=== PATIENT | female | born 1935 | race Caucasian/White ===

== ENCOUNTER 2017-10-23 05:13 | Emergency (ER) | payer MEDICARE, OTHER ==
[2017-10-23 05:41] VITALS: BP 121/82
--- NOTE | 2017-10-23 05:57 | EDM.PDOC ---
ED HPI GENERAL MEDICAL PROBLEM - General Chief Complaint: Syncope Stated Complaint: MEDICAL VIA [facility] Time Seen by Provider: 10/23/17 05:35 Source of Information: Reports: Patient History Limitations: Reports: Other (old records not available) - History of Present Illness INITIAL COMMENTS - FREE TEXT/NARRATIVE: 82 yo female from [facility] gets all her medical care in [place] and has had a lot of manipulation of her BP meds in recent mos. Tonight was up to go to the bathroom and after several warnings of light-headedness eventually fell. She suffered minimal injury with the fall, but EMS was called and transported after a 500 ml bolus of IV fluids. She is feeling better now. Last BUN was 44, Cr 1.16 Onset: Today Onset Date: 10/23/17 Duration: Minutes:, Improving Location: Reports: Generalized Quality: Reports: Other (no pain) Severity: Mild Improves with: Reports: Other (fluids) Worsens with: Reports: Other (? 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 - Related Data Allergies Allergy/AdvReac Type Severity Reaction Status Date / Time meclizine Allergy Rash Verified 10/23/17 05:15 Sulfa (Sulfonamide Allergy Rash Verified 10/23/17 05:15 Antibiotics) Home Meds: Home Meds ALPRAZolam [Xanax] 0.25 mg PO TID PRN 10/04/15 [History] Aspirin [Ecotrin] 81 mg PO BEDTIME 10/04/15 [History] Atenolol 50 mg PO BEDTIME 10/04/15 [History] Estrogens, Conjugated [Premarin Vaginal Crm] 1 applic VAG WEEKLY 10/04/15 [ History] Hyoscyamine [Levsin] 0.25 mg PO Q4HR PRN 10/04/15 [History] Losartan [Cozaar] 100 mg PO DAILY 10/04/15 [History] Spironolactone [Aldactone] 12.5 mg PO DAILY 10/04/15 [History] atorvaSTATin [Lipitor] 40 mg PO BEDTIME 10/04/15 [History] Past Medical History HEENT History: Reports: Cataract, Other (See Below) Other HEENT History: cataract surgery Cardiovascular History: Reports: Arrhythmia, Hypertension Gastrointestinal History: Reports: Irritable Bowel Syndrome 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: Musculoskeletal History: Reports: Osteoporosis Psychiatric History: Reports: Anxiety Endocrine/Metabolic History: Reports: Hypothyroidism - Infectious Disease History Infectious Disease History: Reports: Chicken Pox, Influenza, Measles, Mumps, Shingles - Past Surgical History HEENT Surgical History: Reports: Cataract Surgery, Tonsillectomy Social & Family History - Family History Family Medical History: Noncontributory - Tobacco Use Smoking Status *Q: Never Smoker - Caffeine Use Caffeine Use: Reports: Coffee, Soda - Recreational Drug Use Recreational Drug Use: No ED ROS GENERAL - Review of Systems Review Of Systems: See Below Constitutional: Reports: No Symptoms HEENT: Reports: No Symptoms Respiratory: Reports: No Symptoms Cardiovascular: Reports: Lightheadedness Endocrine: Reports: No Symptoms GI/Abdominal: Reports: No Symptoms : Reports: No Symptoms Musculoskeletal: Reports: No Symptoms Skin: Reports: No Symptoms Neurological: Reports: Syncope (near-syncope) Psychiatric: Reports: No Symptoms ED EXAM, GENERAL - Physical Exam Exam: See Below Exam Limited By: No Limitations General Appearance: Alert, WD/WN, No Apparent Distress Eye Exam: Bilateral Eye: Normal Inspection Ears: Normal External Exam, Normal Canal, Hearing Grossly Normal Ear Exam: Bilateral Ear: Auricle Normal, Canal Normal Nose: Normal Inspection, Normal Mucosa, No Blood, Nasal Tenderness (from her fall) Throat/Mouth: Normal Inspection, Normal Lips, Normal Oropharynx, Normal Voice, No Airway Compromise Head: Atraumatic, Normocephalic Neck: Normal Inspection, Supple, Non-Tender Respiratory/Chest: No Respiratory Distress, Lungs Clear, Normal Breath Sounds, No Accessory Muscle Use Cardiovascular: Regular Rate, Rhythm GI/Abdominal: Normal Bowel Sounds, Soft, Non-Tender, No Distention Back Exam: Normal Inspection Extremities: Normal Inspection, Normal Range of Motion, Non-Tender, No Pedal Edema, Redness Neurological: Alert, Oriented, CN II-XII Intact, No Motor/Sensory Deficits Psychiatric: Normal Affect, Normal Mood Skin Exam: Warm, Dry, Intact, Normal Color, No Rash Lymphatic: No Adenopathy Course - Vital Signs Last Recorded V/S: Last Vital Signs Temp 36.3 C 10/23/17 05:19 Pulse 62 10/23/17 05:40 Resp 11 L 10/23/17 05:19 BP 121/82 10/23/17 05:40 Pulse Ox 100 10/23/17 05:19 - Orders/Labs/Meds Labs: Laboratory Tests 10/23/17 Range/Units 06:04 Sodium 141 (140-148) mmol/L Potassium 4.3 (3.6-5.2) mmol/L Chloride 108 (100-108) mmol/L Carbon Dioxide 23 (21-32) mmol/L Anion Gap 10.1 (5.0-14.0) mmol/L BUN 34 H (7-18) mg/dL Creatinine 1.2 H (0.6-1.0) mg/dL Est Cr Clr Drug Dosing 28.21 mL/min Estimated GFR (MDRD) 43 L (>60) Glucose 133 H (74-106) mg/dL Calcium 8.9 (8.5-10.1) mg/dL Departure - Departure Time of Disposition: 06:34 Disposition: Home, Self-Care 01 Condition: Good Clinical Impression: Hypotension Qualifiers: Hypotension type: hypotension due to drug Qualified Code(s): I95.2 - Hypotension due to drugs Referrals: PCP,None [Primary Care Provider] - Forms: ED Department Discharge
== END 2017-10-23 06:58 | disposition home or self-care (01) ==
LOC: JP.ED 05:13
DX: I95.2 Hypotension due to drugs (principal); I10 Essential (primary) hypertension; F41.9 Anxiety disorder, unspecified; E03.9 Hypothyroidism, unspecified; Z79.82 Long term (current) use of aspirin; Z79.899 Other long term (current) drug therapy; Z88.2 Allergy status to sulfonamides; Z88.8 Allergy status to other drugs, medicaments and biological substances
CPT/HCPCS: 36415; 80048; 99284

== ENCOUNTER 2018-08-21 14:39 | Emergency (ER) | payer MEDICARE, OTHER ==
[2018-08-21] MEDS ORDERED: Diltiazem 120 MG Cap.CD PO SCH (15:45)
--- NOTE | 2018-08-21 15:55 | EDM.PDOC ---
ED HPI GENERAL MEDICAL PROBLEM - General Chief Complaint: Cardiovascular Problem Stated Complaint: ELEVATED BLOOD PRESSURE Time Seen by Provider: 08/21/18 14:55 Source of Information: Reports: Patient History Limitations: Reports: No Limitations - History of Present Illness INITIAL COMMENTS - FREE TEXT/NARRATIVE: pt is going thriough a stressful time in her life. She states they did just sell their hous and will be moving to [place] by November. She is overwelmed with the packing and organizing their stuff. She recently had her in the hosp and that was stressful She was at the ER in [facility] and was in atrial fib on sat. She saw Dr Dillard on saturday while her was in the hosp . He gave her ativan and cardizem. She did not start the cardizem. She has been concerned about her bp. Onset: Gradual Duration: Day(s): Location: Reports: Chest Associated Symptoms: Reports: No Other Symptoms, Other (pt is feeling very anxious and her heart rate is up and her bp is elevated. ) - Related Data Allergies Allergy/AdvReac Type Severity Reaction Status Date / Time meclizine Allergy Rash Verified 08/21/18 14:57 Sulfa (Sulfonamide Allergy Rash Verified 08/21/18 14:57 Antibiotics) Home Meds: Home Meds Aspirin [Ecotrin] 81 mg PO BEDTIME 10/04/15 [History] Estrogens, Conjugated [Premarin Vaginal Crm] 1 applic VAG WEEKLY 10/04/15 [ History] Hyoscyamine [Levsin] 0.125 mg PO Q4HR PRN 10/04/15 [History] Spironolactone [Aldactone] 12.5 mg PO DAILY 10/04/15 [History] atorvaSTATin [Lipitor] 40 mg PO BEDTIME 10/04/15 [History] Ascorbate Calcium [Vitamin C] 1 tab PO BID 03/27/18 [History] Calcium Citrate/Vitamin D3 [Calcium Citrate + D] 1 tab PO DAILY 03/27/18 [ History] Cholecalciferol (Vitamin D3) [Vitamin D3] 1 tab PO DAILY 03/27/18 [History] Multivitamins/Min/Ca/FA/Iron [Thera-M] 1 tab PO DAILY 03/27/18 [History] [place]-3/DHA/Epa/Fish Oil [[place] 3 500 Softgel] 3 tab PO BID 03/27/18 [History] Ubidecarenone [Co Q-10] 1 tab PO DAILY 03/27/18 [History] Diltiazem HCl [Cartia Xt] 120 mg PO DAILY 08/21/18 [History] Escitalopram [Lexapro] 10 mg PO DAILY 08/21/18 [History] Fish Oil/[place]-3 Fatty Acids [Fish Oil] 1 each PO BID 08/21/18 [History] Vitamin E 1 cap PO DAILY 08/21/18 [History] Past Medical History HEENT History: Reports: Cataract, Other (See Below) Other HEENT History: cataract surgery Cardiovascular History: Reports: Arrhythmia, Hypertension Respiratory History: Reports: None Gastrointestinal History: Reports: Irritable Bowel Syndrome 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: Musculoskeletal History: Reports: Osteoporosis Psychiatric History: Reports: Anxiety Endocrine/Metabolic History: Reports: Hypothyroidism Oncologic (Cancer) History: Reports: Basal Cell Carcinoma - Infectious Disease History Infectious Disease History: Reports: Chicken Pox, Influenza, Measles, Mumps, Shingles - Past Surgical History HEENT Surgical History: Reports: Cataract Surgery, Tonsillectomy Cardiovascular Surgical History: Reports: None Respiratory Surgical History: Reports: None GI Surgical History: Reports: None Endocrine Surgical History: Reports: None Musculoskeletal Surgical History: Reports: None Oncologic Surgical History: Reports: None Dermatological Surgical History: Reports: Skin Biopsy Social & Family History - Family History Family Medical History: Noncontributory - Tobacco Use Smoking Status *Q: Never Smoker Second Hand Smoke Exposure: No - Caffeine Use Caffeine Use: Reports: Coffee, Soda, Tea - Recreational Drug Use Recreational Drug Use: No ED ROS GENERAL - Review of Systems Review Of Systems: See Below Constitutional: Reports: No Symptoms HEENT: Reports: No Symptoms Respiratory: Reports: No Symptoms Cardiovascular: Reports: Other (bp and her heart rate was up. ) Endocrine: Reports: No Symptoms GI/Abdominal: Reports: No Symptoms : Reports: No Symptoms Musculoskeletal: Reports: No Symptoms ED EXAM, GENERAL - Physical Exam Exam: See Below Free Text/Narrative:: pt arrived concerned because her bp was elevated. She had been given ativan and she does not feel like that is working as well as the xanax did. She also had been given cardizem 120 and she had not started that. Exam Limited By: No Limitations General Appearance: Alert, Anxious, Mild Distress Ears: Normal TMs Nose: Normal Inspection Throat/Mouth: Normal Inspection Head: Atraumatic Neck: Normal Inspection Respiratory/Chest: No Respiratory Distress Cardiovascular: Regular Rate, Rhythm, Other (pt remained in sinus rhythm) GI/Abdominal: Soft, Non-Tender Rectal (Female) Exam: Deferred Back Exam: Normal Inspection Extremities: Normal Inspection Neurological: Alert, Oriented, Normal Cognition Psychiatric: Normal Affect Course - Vital Signs Last Recorded V/S: Last Vital Signs Temp 35.5 C 08/21/18 14:54 Pulse 61 08/21/18 16:42 Resp 10 L 08/21/18 16:42 BP 158/70 H 08/21/18 16:42 Pulse Ox 99 08/21/18 14:54 - Orders/Labs/Meds Meds: Medications Discontinued Medications Generic Name Dose Route Start Last Admin Trade Name Akhilq PRN Reason Stop Dose Admin Diltiazem HCl 120 mg 08/21/18 15:45 08/21/18 15:46 Cardizem Cd PO 120 mg DAILY JESENIA Administration - Re-Assessments/Exams Free Text/Narrative Re-Assessment/Exam: 08/21/18 16:45 pt was given the cardizem 120 sr . She was watched for awhile and her bp was better. Departure - Departure Time of Disposition: 16:51 Disposition: Home, Self-Care 01 Condition: Fair Clinical Impression: Hypertension, History of atrial fibrillation, Anxiety Instructions: Hypertension Referrals: PCP,None [Primary Care Provider] - Forms: ED Department Discharge Care Plan Goals: stop the lorazepam, go back to the xanax(lalprazam .25) 1/2 tab bid as needed, cardizem 130 sr dily with breakfast, cont other meds, keep appt with Dr Iglesias
[2018-08-21 16:43] VITALS: BP 158/70
== END 2018-08-21 17:07 | disposition home or self-care (01) ==
LOC: JP.ED 14:39
DX: I10 Essential (primary) hypertension (principal); I48.91 Unspecified atrial fibrillation; E03.9 Hypothyroidism, unspecified; F41.9 Anxiety disorder, unspecified; Z79.82 Long term (current) use of aspirin; Z79.899 Other long term (current) drug therapy
CPT/HCPCS: 99282; A9270

== ENCOUNTER 2018-08-29 20:40 | Emergency (ER) | payer MEDICARE, OTHER ==
[2018-08-29] MEDS ORDERED: Diltiazem IR 30 MG Tab PO ONE (20:53)
[2018-08-29] MEDS ORDERED: Sodium Chloride 0.9% 10 ML Syringe FLUSH PRN (20:55)
--- NOTE | 2018-08-29 20:55 | EDM.PDOC ---
ED HPI GENERAL MEDICAL PROBLEM - General Chief Complaint: Cardiovascular Problem Stated Complaint: POSSIBLE A-FIB Time Seen by Provider: 08/29/18 20:54 Source of Information: Reports: Patient, Old Records History Limitations: Reports: No Limitations - History of Present Illness INITIAL COMMENTS - FREE TEXT/NARRATIVE: 83 yo female with a pHx of intermittent afib and who is currently taking Eliquis and Diltiazem CD 120 mg daily for this presents with a rapid, irregular heart beat. Was under more stress today which she feels brings this on. No chest pain. Has not missed any of her meds. 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) (usual meds) - Related Data Allergies Allergy/AdvReac Type Severity Reaction Status Date / Time meclizine Allergy Rash Verified 08/29/18 20:48 Sulfa (Sulfonamide Allergy Rash Verified 08/29/18 20:48 Antibiotics) Home Meds: Home Meds Aspirin [Ecotrin] 81 mg PO BEDTIME 10/04/15 [History] Estrogens, Conjugated [Premarin Vaginal Crm] 1 applic VAG WEEKLY 10/04/15 [ History] Hyoscyamine [Levsin] 0.125 mg PO Q4HR PRN 10/04/15 [History] Spironolactone [Aldactone] 12.5 mg PO DAILY 10/04/15 [History] atorvaSTATin [Lipitor] 40 mg PO BEDTIME 10/04/15 [History] Ascorbate Calcium [Vitamin C] 1 tab PO BID 03/27/18 [History] Calcium Citrate/Vitamin D3 [Calcium Citrate + D] 1 tab PO DAILY 03/27/18 [ History] Cholecalciferol (Vitamin D3) [Vitamin D3] 1 tab PO DAILY 03/27/18 [History] Multivitamins/Min/Ca/FA/Iron [Thera-M] 1 tab PO DAILY 03/27/18 [History] Ubidecarenone [Co Q-10] 1 tab PO DAILY 03/27/18 [History] Diltiazem HCl [Cartia Xt] 120 mg PO DAILY 08/21/18 [History] Fish Oil/[place]-3 Fatty Acids [Fish Oil] 1 each PO BID 08/21/18 [History] ALPRAZolam [Alprazolam] 0.5 tab PO TID PRN 08/29/18 [History] Apixaban [Eliquis] 1 tab PO BID 08/29/18 [History] Past Medical History HEENT History: Reports: Cataract, Other (See Below) Other HEENT History: cataract surgery Cardiovascular History: Reports: Arrhythmia, Hypertension Respiratory History: Reports: None Gastrointestinal History: Reports: Irritable Bowel Syndrome 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: Musculoskeletal History: Reports: Osteoporosis Psychiatric History: Reports: Anxiety Endocrine/Metabolic History: Reports: Hypothyroidism Oncologic (Cancer) History: Reports: Basal Cell Carcinoma - Infectious Disease History Infectious Disease History: Reports: Chicken Pox, Influenza, Measles, Mumps, Shingles - Past Surgical History HEENT Surgical History: Reports: Cataract Surgery, Tonsillectomy Cardiovascular Surgical History: Reports: None Respiratory Surgical History: Reports: None GI Surgical History: Reports: None Endocrine Surgical History: Reports: None Musculoskeletal Surgical History: Reports: None Oncologic Surgical History: Reports: None Dermatological Surgical History: Reports: Skin Biopsy Social & Family History - Family History Family Medical History: Noncontributory - Caffeine Use Caffeine Use: Reports: Coffee, Soda, Tea ED ROS GENERAL - Review of Systems Review Of Systems: See Below Constitutional: Reports: No Symptoms HEENT: Reports: No Symptoms Respiratory: Reports: No Symptoms Cardiovascular: Reports: Palpitations, Other (tachycardia) Endocrine: Reports: No Symptoms GI/Abdominal: Reports: No Symptoms : Reports: No Symptoms Musculoskeletal: Reports: No Symptoms Skin: Reports: No Symptoms Neurological: Reports: No Symptoms Psychiatric: Reports: No Symptoms ED EXAM, GENERAL - Physical Exam Exam: See Below Exam Limited By: No Limitations General Appearance: Alert, WD/WN, No Apparent Distress Eye Exam: Bilateral Eye: Normal Inspection Ears: Normal External Exam, Normal Canal, Hearing Grossly Normal Ear Exam: Bilateral Ear: Auricle Normal, Canal Normal Nose: Normal Inspection, No Blood Throat/Mouth: Normal Inspection, Normal Lips, Normal Oropharynx, Normal Voice, No Airway Compromise Head: Atraumatic, Normocephalic Neck: Normal Inspection Respiratory/Chest: No Respiratory Distress, Lungs Clear, Normal Breath Sounds, No Accessory Muscle Use Cardiovascular: No Edema, Tachycardia, Irregularly Irregular GI/Abdominal: Normal Bowel Sounds, Soft, Non-Tender, No Distention Back Exam: Normal Inspection. No: CVA Tenderness (R), CVA Tenderness (L) Extremities: Normal Inspection, Normal Range of Motion, Non-Tender, No Pedal Edema Neurological: Alert, Oriented, CN II-XII Intact, Normal Cognition, No Motor/ Sensory Deficits Psychiatric: Normal Affect, Normal Mood Skin Exam: Warm, Dry, Intact, Normal Color, No Rash Course - Vital Signs Text/Narrative:: HR came down to 80's and 90's after the additional diltiazem. Feeling better. Last Recorded V/S: Last Vital Signs Temp 36 C 08/29/18 20:58 Pulse 101 H 08/29/18 21:22 Resp 13 08/29/18 21:01 BP 124/60 08/29/18 21:22 Pulse Ox 98 08/29/18 21:01 - Orders/Labs/Meds Orders: Active Orders 24 hr Category Date Time Status Cardiac Monitoring [RC] .As Directed Care 08/29/18 20:49 Active Sodium Chloride 0.9% [Saline Flush] Med 08/29/18 20:55 Active 10 ml FLUSH ASDIRECTED PRN Saline Lock Insert [OM.PC] Routine Oth 08/29/18 20:55 Ordered Medication Orders Sodium Chloride (Saline Flush) 10 ml FLUSH ASDIRECTED PRN PRN Reason: Keep Vein Open Last Admin: 08/29/18 21:00 Dose: 10 ml Meds: Medications Generic Name Dose Route Start Last Admin Trade Name Freq PRN Reason Stop Dose Admin Sodium Chloride 10 ml 08/29/18 20:55 08/29/18 21:00 Saline Flush FLUSH 10 ml ASDIRECTED PRN Administration Keep Vein Open Discontinued Medications Generic Name Dose Route Start Last Admin Trade Name Freq PRN Reason Stop Dose Admin Diltiazem HCl 30 mg 08/29/18 20:53 08/29/18 21:00 Cardizem PO 08/29/18 20:54 30 mg ONETIME ONE Administration Diltiazem HCl 20 mg 08/29/18 21:12 08/29/18 21:19 Diltiazem IVPUSH 08/29/18 21:13 20 mg ONETIME ONE Administration Departure - Departure Time of Disposition: 23:00 Disposition: Home, Self-Care 01 Condition: Good Clinical Impression: Atrial fibrillation with RVR Instructions: Atrial Fibrillation, [id number] Referrals: James Li MD [Primary Care Provider] - Forms: ED Department Discharge Additional Instructions: Starting tomorrow morning take your diltiazem now every 12 hrs. Continue all your other medicines as currently. Recheck with your doctor next week. Return here as needed. - My Orders Last 24 Hours: My Active Orders 08/29/18 20:49 Cardiac Monitoring [RC] .As Directed 08/29/18 20:55 Sodium Chloride 0.9% [Saline Flush] 10 ml FLUSH ASDIRECTED PRN Saline Lock Insert [OM.PC] Routine - Assessment/Plan Last 24 Hours: My Active Orders 08/29/18 20:49 Cardiac Monitoring [RC] .As Directed 08/29/18 20:55 Sodium Chloride 0.9% [Saline Flush] 10 ml FLUSH ASDIRECTED PRN Saline Lock Insert [OM.PC] Routine
[2018-08-29] MEDS ORDERED: Diltiazem 25 MG/5 ML SDV IVPUSH ONE (21:12)
[2018-08-29 23:20] VITALS: BP 121/66
== END 2018-08-29 23:36 | disposition home or self-care (01) ==
LOC: JP.ED 20:40
DX: I48.91 Unspecified atrial fibrillation (principal); F41.9 Anxiety disorder, unspecified; E03.9 Hypothyroidism, unspecified; Z85.828 Personal history of other malignant neoplasm of skin; Z79.82 Long term (current) use of aspirin; Z79.899 Other long term (current) drug therapy; Z88.2 Allergy status to sulfonamides; Z88.8 Allergy status to other drugs, medicaments and biological substances
CPT/HCPCS: 96374; 99283; A9270; J3490

== ENCOUNTER 2018-08-30 15:14 | Emergency (ER) | payer MEDICARE, OTHER ==
[2018-08-30 15:32] VITALS: BP 133/56
--- NOTE | 2018-08-30 15:48 | EDM.PDOC ---
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, Other (see below) (elevated foot until could come in to ED) Left Ankle Pain Score (Numeric/FACES): 4 - Related Data Allergies Allergy/AdvReac Type Severity Reaction Status Date / Time meclizine Allergy Rash Verified 08/30/18 15:28 Sulfa (Sulfonamide Allergy Rash Verified 08/30/18 15:28 Antibiotics) Home Meds: Home Meds Aspirin [Ecotrin] 81 mg PO BEDTIME 10/04/15 [History] Estrogens, Conjugated [Premarin Vaginal Crm] 1 applic VAG WEEKLY 10/04/15 [ History] Hyoscyamine [Levsin] 0.125 mg PO Q4HR PRN 10/04/15 [History] Spironolactone [Aldactone] 12.5 mg PO DAILY 10/04/15 [History] atorvaSTATin [Lipitor] 40 mg PO BEDTIME 10/04/15 [History] Ascorbate Calcium [Vitamin C] 1 tab PO BID 03/27/18 [History] Calcium Citrate/Vitamin D3 [Calcium Citrate + D] 1 tab PO DAILY 03/27/18 [ History] Cholecalciferol (Vitamin D3) [Vitamin D3] 1 tab PO DAILY 03/27/18 [History] Multivitamins/Min/Ca/FA/Iron [Thera-M] 1 tab PO DAILY 03/27/18 [History] Ubidecarenone [Co Q-10] 1 tab PO DAILY 03/27/18 [History] Diltiazem HCl [Cartia Xt] 120 mg PO BID 08/21/18 [History] Fish Oil/[place]-3 Fatty Acids [Fish Oil] 1 each PO BID 08/21/18 [History] ALPRAZolam [Alprazolam] 0.5 tab PO TID PRN 08/29/18 [History] Apixaban [Eliquis] 1 tab PO BID 08/29/18 [History] Past Medical History HEENT History: Reports: Cataract, Other (See Below) Other HEENT History: cataract surgery Cardiovascular History: Reports: Afib, Arrhythmia, Hypertension Respiratory History: Reports: None Gastrointestinal History: Reports: Irritable Bowel Syndrome 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: Musculoskeletal History: Reports: Osteoporosis Psychiatric History: Reports: Anxiety Endocrine/Metabolic History: Reports: Hypothyroidism Hematologic History: Reports: Anticoagulation Therapy Oncologic (Cancer) History: Reports: Basal Cell Carcinoma Dermatologic History: Reports: None - Infectious Disease History Infectious Disease History: Reports: Chicken Pox, Measles, Mumps, Pertussis ( Whooping Cough), Shingles - Past Surgical History Head Surgeries/Procedures: Reports: None HEENT Surgical History: Reports: Cataract Surgery, Tonsillectomy Cardiovascular Surgical History: Reports: None Respiratory Surgical History: Reports: None GI Surgical History: Reports: None Endocrine Surgical History: Reports: None Musculoskeletal Surgical History: Reports: None Oncologic Surgical History: Reports: None Dermatological Surgical History: Reports: Skin Biopsy Social & Family History - Family History Family Medical History: Noncontributory - Tobacco Use Smoking Status *Q: Never Smoker Second Hand Smoke Exposure: No - Caffeine Use Caffeine Use: Reports: Coffee, Soda, Tea Caffeine Use Comment: decaf coffee - Recreational Drug Use Recreational Drug Use: No Review of Systems - Review of Systems Review Of Systems: ROS reveals no pertinent complaints other than HPI. Constitutional: Reports: No Symptoms Eyes: Reports: No Symptoms Ears: Reports: No Symptoms Nose: Reports: No Symptoms Mouth/Throat: Reports: No Symptoms Respiratory: Reports: No Symptoms Cardiovascular: Reports: No Symptoms GI/Abdominal: Reports: No Symptoms Genitourinary: Reports: No Symptoms Musculoskeletal: Reports: Foot Pain (left ankle; slipped at the bottom of the stair, not clear in how this happened. Denies hitting head. ) ED EXAM, GENERAL - Physical Exam Exam: See Below Exam Limited By: No Limitations General Appearance: Alert, WD/WN, No Apparent Distress Ears: Hearing Grossly Normal Respiratory/Chest: No Respiratory Distress, Normal Breath Sounds Cardiovascular: Regular Rate, Rhythm Peripheral Pulses: 2+: Dorsalis Pedis (L), Dorsalis Pedis (R) Extremities: Other (right ankle to visible bruise forming, probable cause is contusion to lateral aspect of foot, large blood vessels visible through skin. Negative medial or lateral malleolar tenderness. Normal sensation and pulse. Left ankle swollen. Pain to both medial and lateral aspects of malleolus. No navicular tenderness. No achilles tendon tenderness. ) Course - Vital Signs Text/Narrative:: Ice pack to ankle in ED. 3 view Xray of left ankle. My interpretation of xray is fracture of malleolus. Confirmed by radiologist. IM Toradol 30 mg given. Last Recorded V/S: Last Vital Signs Temp 35.8 C 08/30/18 15:36 Pulse 64 08/30/18 15:36 Resp 16 08/30/18 15:36 BP 133/56 L 08/30/18 15:36 Pulse Ox 98 08/30/18 15:36 - Orders/Labs/Meds Meds: Medications Discontinued Medications Generic Name Dose Route Start Last Admin Trade Name Freq PRN Reason Stop Dose Admin Ketorolac Tromethamine 30 mg 08/30/18 16:53 08/30/18 17:02 Toradol IM 08/30/18 16:54 30 mg ONETIME ONE Administration Departure - Departure Time of Disposition: 17:15 Disposition: Home, Self-Care 01 Clinical Impression: Ankle fracture, lateral malleolus, closed - Discharge Information *PRESCRIPTION DRUG MONITORING PROGRAM REVIEWED*: No *COPY OF PRESCRIPTION DRUG MONITORING REPORT IN PATIENT CHLE: No Instructions: Ankle Fracture, [id number] Referrals: PCP,None [Primary Care Provider] - Forms: ED Department Discharge Additional Instructions: Patient fitted in CAM boot and instructed in use of crutches. Prescription given for [place] 5/325 #12. To return to ED if unable to manage pain with medication, otherwise to rest ankle, ice it and elevate it thoughout the day. Referral to ortho for follow up. Information for Dr. Palma given. <Tim Godinez - Last Filed: 08/30/18 17:28> Course - Radiology Interpretation Free Text/Narrative:: Minimally displaced fracture at the lateral malleolus of left ankle - Re-Assessments/Exams Free Text/Narrative Re-Assessment/Exam: 08/30/18 17:27 This lady was examined along with the nurse practitioner student. She has tenderness at the lateral malleolus and x-ray shows a fracture in this area. She was placed in a walking boot and fitted with crutches. She was administered IM Toradol. She'll be given a prescription for a small amount of Narco to use at night. She'll follow up with orthopedics next week.
--- NOTE | 2018-08-30 16:36 | CRLCR ---
HISTORY: Left ankle pain. FINDINGS: Three views of the left ankle are provided. There is a transverse fracture through the central portion of the lateral malleolus. There is distraction of the fragments by approximately 3 mm at. There is no evidence for fracture elsewhere. The ankle joint space is normally maintained. Prominent lateral soft tissue swelling is noted. IMPRESSION: Minimally displaced lateral malleolar fracture. Dictated by oRry Mendes MD @ Aug 30 2018 4:33PM Signed by Dr. Rory Mendes @ Aug 30 2018 4:35PM
[2018-08-30] MEDS ORDERED: Ketorolac 30 MG/ML SDV IM ONE (16:53)
== END 2018-08-30 17:32 | disposition home or self-care (01) ==
LOC: JP.ED 15:14
DX: S82.62XA Displaced fracture of lateral malleolus of left fibula, initial encounter for closed fracture (principal); Z88.2 Allergy status to sulfonamides; Z79.82 Long term (current) use of aspirin; Z79.899 Other long term (current) drug therapy; X58.XXXA Exposure to other specified factors, initial encounter
CPT/HCPCS: 73610; 96372; 99283; J1885

== ENCOUNTER 2018-09-11 17:54 | Emergency (ER) | payer MEDICARE, OTHER ==
[2018-09-11] MEDS ORDERED: Diltiazem 25 MG/5 ML SDV IVPUSH ONE (18:33)
[2018-09-11 19:25] VITALS: BP 117/56
--- NOTE | 2018-09-11 20:02 | EDM.PDOC ---
ED HPI GENERAL MEDICAL PROBLEM - General Chief Complaint: Cardiovascular Problem Stated Complaint: A FIB Time Seen by Provider: 09/11/18 18:20 Source of Information: Reports: Patient, Family, Other (PT HAS HAD A GREAT DEAL OF STRESS. ) History Limitations: Reports: No Limitations - History of Present Illness INITIAL COMMENTS - FREE TEXT/NARRATIVE: PT ARRIVED WITH A RAPID HEART RHYTHM -- ATRIAL FIB. tHIS WILL BE THE THIRD EPISODE OF ATRIAL FIB IN THE LAST 5-6 WEEKS, sHE WAS SEEN IN [place] FIRST AND WAS CONVERTED WITH A DRIP. sHE WAS SEEN A SECOND TIME HERE AND SHE WAS CONVERTED WITH CARDIZEM. tODAY SHE WAS IN THE e AND HER RATE WAS 140. sHE DID CONVERT ON HER OWN AND SHE WAS GIVEN CARDIZEM 10 MG IV. Onset: Today, Sudden Duration: Hour(s):, Other ( STARTED ABOUT 4 THIRTY. sHE IS ON ELEQUIST) Location: Reports: Chest Associated Symptoms: Reports: No Other Symptoms, Other (PT WAS FEELING A LITTLE SHAKEY WHEN SHE FIRST GOT HERE. sHE IS GOING THROUGH A VERY STRESSFUL TIME. ) - Related Data Allergies Allergy/AdvReac Type Severity Reaction Status Date / Time meclizine Allergy Rash Verified 08/30/18 15:28 Sulfa (Sulfonamide Allergy Rash Verified 08/30/18 15:28 Antibiotics) Home Meds: Home Meds Aspirin [Ecotrin] 81 mg PO BEDTIME 10/04/15 [History] Estrogens, Conjugated [Premarin Vaginal Crm] 1 applic VAG WEEKLY 10/04/15 [ History] Hyoscyamine [Levsin] 0.125 mg PO Q4HR PRN 10/04/15 [History] Spironolactone [Aldactone] 12.5 mg PO DAILY 10/04/15 [History] atorvaSTATin [Lipitor] 40 mg PO BEDTIME 10/04/15 [History] Ascorbate Calcium [Vitamin C] 1 tab PO BID 03/27/18 [History] Calcium Citrate/Vitamin D3 [Calcium Citrate + D] 1 tab PO DAILY 03/27/18 [ History] Cholecalciferol (Vitamin D3) [Vitamin D3] 1 tab PO DAILY 03/27/18 [History] Multivitamins/Min/Ca/FA/Iron [Thera-M] 1 tab PO DAILY 03/27/18 [History] Ubidecarenone [Co Q-10] 1 tab PO DAILY 03/27/18 [History] Diltiazem HCl [Cartia Xt] 120 mg PO BID 08/21/18 [History] Fish Oil/[place]-3 Fatty Acids [Fish Oil] 1 each PO BID 08/21/18 [History] ALPRAZolam [Alprazolam] 0.5 tab PO TID PRN 08/29/18 [History] Apixaban [Eliquis] 1 tab PO BID 08/29/18 [History] Acetaminophen/HYDROcodone [[place] 325-5 MG] 1 tab PO Q6H 09/02/18 [History] metFORMIN [Glucophage] 500 mg PO BIDMEALS 09/11/18 [History] Past Medical History HEENT History: Reports: Cataract, Other (See Below) Other HEENT History: cataract surgery Cardiovascular History: Reports: Afib, Arrhythmia, Hypertension Respiratory History: Reports: None Gastrointestinal History: Reports: Irritable Bowel Syndrome Genitourinary History: Reports: None 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: Musculoskeletal History: Reports: Fracture, Osteoporosis Other Musculoskeletal History: left ankle fx Neurological History: Reports: None Psychiatric History: Reports: Anxiety Endocrine/Metabolic History: Reports: Hypothyroidism Hematologic History: Reports: Anticoagulation Therapy Immunologic History: Reports: None Oncologic (Cancer) History: Reports: Basal Cell Carcinoma Dermatologic History: Reports: None - Infectious Disease History Infectious Disease History: Reports: Chicken Pox, Measles, Mumps - Past Surgical History Head Surgeries/Procedures: Reports: None HEENT Surgical History: Reports: Cataract Surgery, Tonsillectomy Cardiovascular Surgical History: Reports: None Respiratory Surgical History: Reports: None GI Surgical History: Reports: None Endocrine Surgical History: Reports: None Musculoskeletal Surgical History: Reports: None Oncologic Surgical History: Reports: None Dermatological Surgical History: Reports: Skin Biopsy Social & Family History - Family History Family Medical History: Noncontributory - Tobacco Use Smoking Status *Q: Never Smoker - Caffeine Use Caffeine Use: Reports: Coffee Caffeine Use Comment: decaf coffee - Recreational Drug Use Recreational Drug Use: No ED ROS GENERAL - Review of Systems Review Of Systems: See Below Constitutional: Reports: No Symptoms HEENT: Reports: No Symptoms Respiratory: Reports: No Symptoms Cardiovascular: Reports: Palpitations Endocrine: Reports: No Symptoms GI/Abdominal: Reports: No Symptoms : Reports: No Symptoms Musculoskeletal: Reports: No Symptoms Skin: Reports: No Symptoms ED EXAM, GENERAL - Physical Exam Exam: See Below Free Text/Narrative:: PT ARRIVED WITH A RAPID RHYTHM AND SHE WAS FEELING ANXIOUS ABOUT THAT. sHE DID TAKE 1/2 XANAX PRIOR TO ARRIVAL. Exam Limited By: No Limitations General Appearance: Alert, Anxious, Other (SIGNS ARE GOOD. ) Ears: Normal TMs Nose: Normal Inspection Throat/Mouth: Normal Inspection Head: Atraumatic Neck: Normal Inspection Respiratory/Chest: No Respiratory Distress Cardiovascular: Irregularly Irregular, Other (PT WAS IN ATRIAL FIB WITH A VENTRICULAR RATE OF 140. ) GI/Abdominal: Soft, Non-Tender (Female) Exam: Deferred Rectal (Female) Exam: Deferred Back Exam: Normal Inspection Extremities: Normal Inspection Neurological: Alert, Oriented, Normal Cognition Psychiatric: Normal Affect, Anxious Course - Vital Signs Last Recorded V/S: Last Vital Signs Temp 36.7 C 09/11/18 18:26 Pulse 76 09/11/18 19:24 Resp 14 09/11/18 19:24 BP 117/56 L 09/11/18 19:24 Pulse Ox 98 09/11/18 19:24 - Orders/Labs/Meds Orders: Active Orders 24 hr Category Date Time Status EKG Documentation Completion [RC] ASDIRECTED Care 09/11/18 18:33 Active EKG 12 Lead [EK] Routine Ther 09/11/18 18:33 Ordered Labs: Laboratory Tests 09/11/18 09/11/18 09/11/18 Range/Units 18:24 18:24 18:24 WBC 11.4 H (4.5-11.0) K/uL RBC 4.45 (3.30-5.50) M/uL Hgb 12.3 (12.0-15.0) g/dL Hct 37.2 (36.0-48.0) % MCV 84 (80-98) fL MCH 28 (27-31) pg MCHC 33 (32-36) % Plt Count 354 (150-400) K/uL Neut % (Auto) 66 (36-66) % Lymph % (Auto) 21 L (24-44) % [place] % (Auto) 11 H (2-6) % Eos % (Auto) 2 (2-4) % Baso % (Auto) 0 (0-1) % Sodium 138 L (140-148) mmol/L Potassium 4.6 (3.6-5.2) mmol/L Chloride 100 (100-108) mmol/L Carbon Dioxide 27 (21-32) mmol/L Anion Gap 15.6 H (5.0-14.0) mmol/L BUN 35 H (7-18) mg/dL Creatinine 1.1 H (0.6-1.0) mg/dL Est Cr Clr Drug Dosing 30.27 mL/min Estimated GFR (MDRD) 48 L (>60) Glucose 123 H (74-106) mg/dL Calcium 10.2 H (8.5-10.1) mg/dL Total Bilirubin 0.6 (0.2-1.0) mg/dL AST 37 (15-37) U/L ALT 34 (12-78) U/L Alkaline Phosphatase 84 (46-116) U/L Troponin I < 0.017 (0.000-0.056) ng/mL Total Protein 8.0 (6.4-8.2) g/dL Albumin 3.6 (3.4-5.0) g/dL Globulin 4.4 H (2.3-3.5) g/dL Albumin/Globulin Ratio 0.8 L (1.2-2.2) Urine Color Urine Appearance Urine pH (4.5-8.0) Ur Specific [place] (1.008-1.030) Urine Protein (NEGATIVE) mg/dL Urine Glucose (UA) (NEGATIVE) mg/dL Urine Ketones (NEGATIVE) mg/dL Urine Occult Blood (NEGATIVE) Urine Nitrite (NEGATIVE) Urine Bilirubin (NEGATIVE) Urine Urobilinogen (NORMAL) mg/dL Ur Leukocyte Esterase (NEGATIVE) Urine RBC (0-5) Urine WBC (0-5) Ur Epithelial Cells Amorphous Sediment Urine Bacteria Urine Mucus 09/11/18 Range/Units 19:00 WBC (4.5-11.0) K/uL RBC (3.30-5.50) M/uL Hgb (12.0-15.0) g/dL Hct (36.0-48.0) % MCV (80-98) fL MCH (27-31) pg MCHC (32-36) % Plt Count (150-400) K/uL Neut % (Auto) (36-66) % Lymph % (Auto) (24-44) % [place] % (Auto) (2-6) % Eos % (Auto) (2-4) % Baso % (Auto) (0-1) % Sodium (140-148) mmol/L Potassium (3.6-5.2) mmol/L Chloride (100-108) mmol/L Carbon Dioxide (21-32) mmol/L Anion Gap (5.0-14.0) mmol/L BUN (7-18) mg/dL Creatinine (0.6-1.0) mg/dL Est Cr Clr Drug Dosing mL/min Estimated GFR (MDRD) (>60) Glucose (74-106) mg/dL Calcium (8.5-10.1) mg/dL Total Bilirubin (0.2-1.0) mg/dL AST (15-37) U/L ALT (12-78) U/L Alkaline Phosphatase (46-116) U/L Troponin I (0.000-0.056) ng/mL Total Protein (6.4-8.2) g/dL Albumin (3.4-5.0) g/dL Globulin (2.3-3.5) g/dL Albumin/Globulin Ratio (1.2-2.2) Urine Color Yellow Urine Appearance Clear Urine pH 6.0 (4.5-8.0) Ur Specific [place] 1.020 (1.008-1.030) Urine Protein Negative (NEGATIVE) mg/dL Urine Glucose (UA) Normal (NEGATIVE) mg/dL Urine Ketones 15 H (NEGATIVE) mg/dL Urine Occult Blood Negative (NEGATIVE) Urine Nitrite Negative (NEGATIVE) Urine Bilirubin Negative (NEGATIVE) Urine Urobilinogen Normal (NORMAL) mg/dL Ur Leukocyte Esterase Small (NEGATIVE) Urine RBC Not seen (0-5) Urine WBC 5-10 H (0-5) Ur Epithelial Cells Few Amorphous Sediment Not seen Urine Bacteria Moderate Urine Mucus Not seen Meds: Medications Discontinued Medications Generic Name Dose Route Start Last Admin Trade Name Freq PRN Reason Stop Dose Admin Diltiazem HCl 10 mg 09/11/18 18:33 09/11/18 18:45 Diltiazem IVPUSH 09/11/18 18:34 10 mg ONETIME ONE Administration - Re-Assessments/Exams Free Text/Narrative Re-Assessment/Exam: 09/11/18 20:13 PT HAD GOOD LOOKING LAB WORK. sHE DID CONVERT ON HER OWN. sHE WAS GIVEN CARDIZEM 10 MG IV PUSH. Departure - Departure Time of Disposition: 19:58 Disposition: Home, Self-Care 01 Condition: Fair Clinical Impression: Atrial fibrillation with rapid ventricular response Referrals: James Li MD [Primary Care Provider] - Forms: ED Department Discharge Care Plan Goals: PT CONVERTED WHILE IN eR. sHE WAS GIVEN CARDIZEM BOLUS IV AFTER CONVERSION. sHE HAS BEEN STABLE AT THIS TIME. INCREASE CARDIOZEM TO 180MG IN AM AND CONTINUE CARDIZEM 120 MG IN THE PM. sHE SHOULD TAKE THE XANAX 1/2 TAB EACH AM ON A REGULAR BASIS. a EXTRA HALF CAN BE TAKEN LATER IN THE DAY IF SHE IS HAVING A BAD DAY. - My Orders Last 24 Hours: My Active Orders 09/11/18 18:33 EKG Documentation Completion [RC] ASDIRECTED EKG 12 Lead [EK] Routine - Assessment/Plan Last 24 Hours: My Active Orders 09/11/18 18:33 EKG Documentation Completion [RC] ASDIRECTED EKG 12 Lead [EK] Routine
== END 2018-09-11 20:15 | disposition home or self-care (01) ==
LOC: JP.ED 17:54
DX: I48.91 Unspecified atrial fibrillation (principal); I10 Essential (primary) hypertension; E03.9 Hypothyroidism, unspecified; Z79.01 Long term (current) use of anticoagulants; Z88.2 Allergy status to sulfonamides; Z88.8 Allergy status to other drugs, medicaments and biological substances
CPT/HCPCS: 36415; 80053; 81001; 84484; 85025; 93005; 99285; J3490

== ENCOUNTER 2018-09-22 22:05 | Emergency (ER) | payer MEDICARE, OTHER ==
[2018-09-22 22:20] VITALS: BP 123/62
--- NOTE | 2018-09-22 22:42 | EDM.PDOC ---
ED HPI GENERAL MEDICAL PROBLEM - General Chief Complaint: Cardiovascular Problem Stated Complaint: A FIB Time Seen by Provider: 09/22/18 22:20 Source of Information: Reports: Patient, Old Records History Limitations: Reports: No Limitations - History of Present Illness INITIAL COMMENTS - FREE TEXT/NARRATIVE: 83 yo female recently dx with intermittent afib had a bout of afib before arrival that has since resolved. She is feeling back to normal. She is on diltiazem for rate control and Eliquis for clot prevention. Has no chest pain or SOB with her bout earlier, but thinks her rate was over 100. Onset: Today Onset Date: 09/22/18 Duration: Minutes:, Resolved Prior to Arrival Location: Reports: Chest Quality: Reports: Other (no pain) Severity: Mild Improves with: Reports: Other (? time) Worsens with: Reports: Other (? 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 (see below) (none) - Related Data Allergies Allergy/AdvReac Type Severity Reaction Status Date / Time meclizine Allergy Rash Verified 08/30/18 15:28 Sulfa (Sulfonamide Allergy Rash Verified 08/30/18 15:28 Antibiotics) Home Meds: Home Meds Aspirin [Ecotrin] 81 mg PO BEDTIME 10/04/15 [History] Estrogens, Conjugated [Premarin Vaginal Crm] 1 applic VAG WEEKLY 10/04/15 [ History] Hyoscyamine [Levsin] 0.125 mg PO Q4HR PRN 10/04/15 [History] Spironolactone [Aldactone] 12.5 mg PO DAILY 10/04/15 [History] atorvaSTATin [Lipitor] 40 mg PO BEDTIME 10/04/15 [History] Ascorbate Calcium [Vitamin C] 1 tab PO BID 03/27/18 [History] Calcium Citrate/Vitamin D3 [Calcium Citrate + D] 1 tab PO DAILY 03/27/18 [ History] Cholecalciferol (Vitamin D3) [Vitamin D3] 1 tab PO DAILY 03/27/18 [History] Multivitamins/Min/Ca/FA/Iron [Thera-M] 1 tab PO DAILY 03/27/18 [History] Ubidecarenone [Co Q-10] 1 tab PO DAILY 03/27/18 [History] Diltiazem HCl [Cartia Xt] 120 mg PO BID 08/21/18 [History] Fish Oil/[place]-3 Fatty Acids [Fish Oil] 1 each PO BID 08/21/18 [History] ALPRAZolam [Alprazolam] 0.125 mg PO TID PRN 08/29/18 [History] Apixaban [Eliquis] 1 tab PO BID 08/29/18 [History] Acetaminophen/HYDROcodone [[place] 325-5 MG] 1 tab PO Q6H 09/02/18 [History] metFORMIN [Glucophage] 500 mg PO BIDMEALS 09/11/18 [History] ALPRAZolam [Alprazolam] 0.125 mg PO DAILY 09/16/18 [History] Diltiazem [Cardizem SR] 60 mg PO DAILY 09/16/18 [History] Past Medical History HEENT History: Reports: Cataract, Other (See Below) Other HEENT History: cataract surgery Cardiovascular History: Reports: Afib, Arrhythmia, Hypertension Respiratory History: Reports: None Gastrointestinal History: Reports: Irritable Bowel Syndrome Genitourinary History: Reports: 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: Musculoskeletal History: Reports: Fracture, Osteoporosis Other Musculoskeletal History: left ankle fx Neurological History: Reports: None Psychiatric History: Reports: Anxiety Endocrine/Metabolic History: Reports: Hypothyroidism Hematologic History: Reports: Anticoagulation Therapy Immunologic History: Reports: None Oncologic (Cancer) History: Reports: Basal Cell Carcinoma Dermatologic History: Reports: None - Infectious Disease History Infectious Disease History: Reports: Chicken Pox, Measles, Mumps - Past Surgical History Head Surgeries/Procedures: Reports: None HEENT Surgical History: Reports: Cataract Surgery, Tonsillectomy Cardiovascular Surgical History: Reports: None Respiratory Surgical History: Reports: None GI Surgical History: Reports: None Endocrine Surgical History: Reports: None Musculoskeletal Surgical History: Reports: None Oncologic Surgical History: Reports: None Dermatological Surgical History: Reports: Skin Biopsy Social & Family History - Family History Family Medical History: Noncontributory - Tobacco Use Smoking Status *Q: Never Smoker - Caffeine Use Caffeine Use: Reports: Coffee Caffeine Use Comment: decaf coffee - Recreational Drug Use Recreational Drug Use: No ED ROS GENERAL - Review of Systems Review Of Systems: See Below Constitutional: Reports: No Symptoms HEENT: Reports: No Symptoms Respiratory: Reports: No Symptoms Cardiovascular: Reports: Palpitations GI/Abdominal: Reports: No Symptoms Skin: Reports: No Symptoms Neurological: Reports: No Symptoms ED EXAM, GENERAL - Physical Exam Exam: See Below Exam Limited By: No Limitations General Appearance: Alert, WD/WN, No Apparent Distress Eye Exam: Bilateral Eye: Normal Inspection Ears: Normal External Exam, Normal Canal, Hearing Grossly Normal, Normal TMs Ear Exam: Bilateral Ear: Auricle Normal, Canal Normal, TM normal Nose: Normal Inspection, Normal Mucosa, No Blood Throat/Mouth: Normal Inspection, Normal Lips, Normal Oropharynx, Normal Voice, No Airway Compromise Head: Atraumatic, Normocephalic Neck: Normal Inspection Respiratory/Chest: No Respiratory Distress, Lungs Clear, Normal Breath Sounds, No Accessory Muscle Use Cardiovascular: Regular Rate, Rhythm, No Edema Extremities: Normal Inspection Neurological: Alert, Oriented, CN II-XII Intact, Normal Cognition, No Motor/ Sensory Deficits Psychiatric: Normal Affect, Normal Mood, Anxious Skin Exam: Warm, Dry, Intact, Normal Color, No Rash Course - Vital Signs Last Recorded V/S: Last Vital Signs Temp 36.1 C 09/22/18 22:19 Pulse 79 09/22/18 22:19 Resp 12 09/22/18 22:19 BP 123/62 09/22/18 22:19 Pulse Ox 97 09/22/18 22:19 - Orders/Labs/Meds Orders: Active Orders 24 hr Category Date Time Status Cardiac Monitoring [RC] .As Directed Care 09/22/18 22:20 Active Departure - Departure Time of Disposition: 22:41 Disposition: Home, Self-Care 01 Condition: Good Clinical Impression: Paroxysmal A-fib Instructions: Atrial Fibrillation, [id number] Referrals: James Li MD [Primary Care Provider] - Additional Instructions: Continue your current medications. Recheck for a rapid heart rate that does not slow to under 100/min with rest. - My Orders Last 24 Hours: My Active Orders 09/22/18 22:20 Cardiac Monitoring [RC] .As Directed - Assessment/Plan Last 24 Hours: My Active Orders 09/22/18 22:20 Cardiac Monitoring [RC] .As Directed
== END 2018-09-22 22:55 | disposition home or self-care (01) ==
LOC: JP.ED 22:05
DX: I48.0 Paroxysmal atrial fibrillation (principal); I10 Essential (primary) hypertension; E03.9 Hypothyroidism, unspecified; Z88.2 Allergy status to sulfonamides; Z88.8 Allergy status to other drugs, medicaments and biological substances; Z79.899 Other long term (current) drug therapy; Z79.82 Long term (current) use of aspirin
CPT/HCPCS: 99283